=== PATIENT | male | born 1990 | race Caucasian/White ===

== ENCOUNTER 2019-06-22 07:39 | Day surgery (SDC) | payer OTHER, SELFPAY ==
[2019-06-14 13:11] VITALS: BMI 33.0
[2019-06-22] VITALS (10 sets, daily range): BP systolic 120–152; BP diastolic 72–95; PULSE 71–92; RESP 9–22; TEMP 36.1–36.4; O2SAT 94–100; BMI 32.3
[2019-06-22] MEDS: LACTATED RINGERS 1,000 ML 100 ML IV ×2 (08:13→10:35)
--- NOTE | 2019-06-22 08:45 | PM.HP.1 ---
History of Present Illness History of Present Illness Date Patient Seen: 06/22/19 Time Patient Seen: 08:45 Chief complaint: [id number] Narrative: Pt seen and exam performed no changes since recent clinic H an p R inguinal hernia repair today with mesh - Lap Patient History Surgical History (Updated 05/05/19 @ 15:09 by Anjelica Pandya RN) Hx of hand surgery (Chronic) Social History household members: spouse Family & Social History Social History: household members spouse Meds Home Medications and Allergies Home Medications Medication Instructions Recorded Confirmed Type No Known Home Medications 05/05/19 06/22/19 History Allergies Allergy/AdvReac Type Severity Reaction Status Date / Time amoxicillin Allergy Unknown rash-childh Verified 06/22/19 07:54 ood Exam Vital Signs (past 8 hours): - 06/22/19 07:55 Temperature 97.1 F L Pulse Rate 71 Respiratory Rate 14 Blood Pressure 131/84 Pulse Oximetry 98 Oxygen Delivery Method Room Air
[2019-06-22] MEDS: CEFAZOLIN 2 GM/100 ML FROZ.PIGGY IV (08:47)
--- NOTE | 2019-06-22 08:48 | SUR.PREOP ---
spoke with MD in regards to pt allergy to amoxicillin and current order for ancef 2g. Per MD ok to continue with current plan to administer Ancef 2g. Communicated this with circulating OR.
--- NOTE | 2019-06-22 09:29 | SUR.OPER ---
Supine on padded OR bed, head on pillow, , legs uncrossed, safety belt at thigh, tape over blanket over lower legs.ARMS PADDED AND TUCKED AT SIDES.
[2019-06-22] MEDS: BUPIVACAINE 0.25% W/ EPI 30 ML VIAL INJ (09:41)
--- NOTE | 2019-06-22 09:57 | SUR.OPER ---
0957 lma REMOVED AND PATIENT INTUBATED WITH ENDOTRACHEAL TUBE
--- NOTE | 2019-06-22 11:01 | PM.OP.1 ---
Operative Date/Time/Diagnoses Date of procedure: 06/22/19 Time of procedure: 11:01 Pre-op diagnosis: R inguinal hernia Post-op diagnosis: same Procedure & Clinicians Procedure: Laproscopic R inguinal hernia repair with mesh - TEP Same procedure as scheduled: Yes Indications: 29 yo man with symptomatic R inguinal hernia - wanted early return to activity and laproscopic repair Surgeon: Sanjiv Kamara Click Yes if Unassisted: Yes Anesthesia Type: General Operative Notes Findings: 1) Rairly large R indirect hernia 2) R rectus sheath utilized and dissection did not cross midline. Left groin preperitoneal space is preserved should a left sided hernia repair be needed later. Closure Type: primary Specimen(s): none sent Prosthetic devices, grafts, tissues, transplants, or devices: G2Link 3D Max regular weight size large, R side PP mesh Estimated Blood Loss (mL): 5 Procedure in detail: Patient was brought to the operating room he is intubated without incident he is prepped and draped in usual sterile fashion a time-out was completed. Curvilinear incision was carried through the inferior umbilical crown through the subcutaneous tissue. The linea alba was identified and the fascia just to the right of it was cleared from the adventitial tissue. A small transverse incision was then made through the right anterior rectus sheath exposing the muscles of the rectus abdominus. Using an S retractor these muscles were pulled laterally and a finger was inserted opening up the space deep to the rectus fibers and superficial to the posterior sheath. A 12 mm balloon tip trocar was then inserted into the space and inflated. Insufflation was then connected to it. Using the laparoscoped to dissect -the preperitoneal space was opened from the site of the trocar to the pubic symphysis just to the right of the midline. With this space well inflated 2 5 mm ports were then placed approximately 2 finger breaths of part in the midportion between the umbilicus and the pubic symphysis. Using 2 laparoscopic graspers the preperitoneal space was opened. I initially cleared the foreground area in the vicinity of the lacunar ligament. With good working space I then proceeded to expose the medial aspect identifying and exposing Duc's ligament and extending the dissection deeper into the space of Retzius. I then moved laterally opening up the preperitoneal space to the anterior superior iliac spine. At this point laterally I clearly identified the peritoneal reflection and the peritoneal lysed the myopectineal orifices in the lateral aspect. Stripping the peritoneum to the most posterior aspect of the dissection field. I then proceeded to address the internal ring the cord structures vas deference and hernia sac were dissected out and clearly identified. Both the cord structures and vas deferens were identified and preserved. An indirect hernia sac was removed from the inguinal canal and reduced back into the abdomen. The space just posterior to the inguinal canal was then de peritonealized as well. I then connected this Work to the dissection more medially being very careful to avoid the iliac vessels and to not unduly removed the fatty tissue adjacent to them. At this point inspected the entire space it was well open, the peritoneal reflection was well posterior. Hemostasis was excellent. At this point a right-sided Bard 3DMax size large piece of regular weight polypropylene mesh was rolled around a laparoscopic grasper and inserted through the umbilical port. it was unrolled within the preperitoneal cavity and oriented so that the medial yasir was at midline. The mesh was placed into the space so that the tail was in the vicinity the anterior superior iliac spine both the internal ring as well as direct space were well covered by the mesh. The medial aspect of the mesh was tacked in 2 places using absorbable tacked to Duc's ligament. At this point the mesh was inspected found to be well oriented, without undue wrinkles. The space was then slowly deinsufflated while inspecting the mesh to ensure it did not shift. At this point the 5 mm ports were removed as well as the umbilical port -the anterior fascial defect in the vicinity of the umbilicus was then closed using a running continuous 0 Vicryl suture in a simple fashion. Local anesthetic was infiltrated the wound. Wounds were irrigated out. Skin was closed using monofilament absorbable suture in a subcuticular fashion. Skin glue was applied Patient extubated brought to PACU without incident Complications: none Post-operative Condition: stable Disposition: PACU Plan for aftercare: PACU then home
[2019-06-22] MEDS: fentaNYL 100 MCG/2 ML INJ 50 MCG IV ×2 (11:19→11:29)
[2019-06-22] MEDS: OXYCODONE/ACETAMINOPHEN 5/325 TABLET 1 TAB PO (11:37)
[2019-06-22] MEDS: HYDROCODONE/ACET 5/325 TABLET 1 TAB PO (12:20)
== END 2019-06-22 12:30 | disposition home or self-care (01) ==
LOC: OR 07:43
PROVIDERS: PCP Family Medicine; Visit Provider Surgery
PROC: 0YQ54ZZ Repair Right Inguinal Region, Percutaneous Endoscopic Approach (ICD-10-PCS; CPT 49650; principal; 2019-06-22 08:45)
DX: K40.90 Unilateral inguinal hernia, without obstruction or gangrene, not specified as recurrent (principal)
CPT/HCPCS: 49650; C1781; J0330; J0690; J1100; J1885; J2405; J2704; J3010

== ENCOUNTER → 2019-10-24 08:36 | Outpatient (CLI) | payer OTHER, SELFPAY ==
--- NOTE | 2019-10-24 08:40 | DI.RAD.S_ITS ---
PROCEDURE: XR SACRUM COCCYX MIN 2V INDICATIONS: possible broken coccyx TECHNIQUE: 3 views of the sacrum and coccyx acquired. COMPARISON: None. FINDINGS: Bones: Seen on the lateral view only there is a cortical irregularity along the central border of the lower sacrum, near the sacrococcygeal junction, with a corresponding contour irregularity dorsally. This likely is a sequela of prior fracture, chronicity unknown.. No suspicious bony lesions. Soft tissues: Visualized bowel gas pattern is normal. No suspicious soft tissue densities. IMPRESSION: Inferior sacral slightly angulated fracture, immediately above the sacrococcygeal junction, chronicity uncertain. MR scanning can be utilized to establish chronicity if necessary. Dictated by: Caleb Morris M.D. on 10/24/2019 at 9:22 Approved by: Caleb Morris M.D. on 10/24/2019 at 9:23
== END ==
PROVIDERS: PCP Family Medicine; Visit Provider Nurse Practitioner
DX: M53.3 Sacrococcygeal disorders, not elsewhere classified (principal); S32.10XA Unspecified fracture of sacrum, initial encounter for closed fracture
CPT/HCPCS: 72220

== ENCOUNTER → 2021-01-12 15:11 | Outpatient (CLI) | payer OTHER, SELFPAY ==
--- NOTE | 2021-01-12 15:12 | DI.RAD.S_ITS ---
PROCEDURE: XR RIBS LT MIN 3V W CXR1V INDICATIONS: l upper rib pain TECHNIQUE: 3 views of the left ribs were acquired, along with a single view chest. COMPARISON: None. FINDINGS: Surgical changes and devices: None. Bones and chest wall: No fractures or dislocations. No suspicious bony lesions. Overlying soft tissues appear unremarkable. Lungs and pleura: No pleural effusions or pneumothorax. Lungs appear clear. Mediastinum: Mediastinal contours appear normal. Heart size is normal. IMPRESSION: Injury Dictated by: Barb Chand M.D. on 01/12/2021 at 15:49 Approved by: Barb Chand M.D. on 01/12/2021 at 15:49
== END ==
PROVIDERS: PCP Family Medicine; Referring Provider Physician Assistant; Visit Provider Physician Assistant
DX: R07.81 Pleurodynia (principal)
CPT/HCPCS: 71101

== ENCOUNTER → 2022-10-05 14:11 | Outpatient (CLI) | payer OTHER, SELFPAY ==
--- NOTE | 2022-10-05 14:12 | DI.RAD.S_ITS ---
PROCEDURE: XR HAND RT MIN 3V INDICATIONS: Right hand injury TECHNIQUE: 3 views of the hand(s) acquired. COMPARISON: None. FINDINGS: Bones: No fractures or dislocations. Carpal bones are normally aligned. No suspicious bony lesions. Soft tissues: No suspicious soft tissue calcifications. IMPRESSION: No acute right hand fracture or dislocation. No gross soft tissue abnormalities. Dictated by: Diallo Montanez M.D. on 10/05/2022 at 15:07 Approved by: Diallo Montanez M.D. on 10/05/2022 at 15:08
== END ==
PROVIDERS: PCP Family Medicine; Referring Provider Nurse Practitioner Family; Visit Provider Nurse Practitioner Family
DX: S69.91XA Unspecified injury of right wrist, hand and finger(s), initial encounter (principal); X58.XXXA Exposure to other specified factors, initial encounter
CPT/HCPCS: 73130